=== PATIENT | female | born 1985 | race Two or more races ===

== ENCOUNTER 2021-02-24 08:58 | Emergency (ER) | payer SELFPAY ==
[2021-02-24] MEDS ORDERED: MIDAZOLAM HCL 5 MG/ML-1ML VIAL ONE (09:02)
[2021-02-24] MEDS ORDERED: fentaNYL Drip 2500mCg/250mlNS 250 ML IV ONE (09:10)
[2021-02-24] MEDS ORDERED: fentaNYL Drip 2500mCg/250mlNS 250 ML IV SCH (09:15)
[2021-02-24] MEDS ORDERED: MIDAZOLAM DRIP 50 mg/50mL 50 ML IV SCH (09:15)
[2021-02-24] MEDS ORDERED: ACETAMINOPHEN 650 mg PER 20.3 mL UD GT ONE (10:00)
[2021-02-24] MEDS ORDERED: SODIUM CHLORIDE 0.9% 2,000 ML IV ONE (10:45)
[2021-02-24 10:53] VITALS: BP 169/119
== END 2021-02-24 11:15 | disposition short-term general hospital (02) ==
LOC: ER 08:58 → EDBD 08:58 → ER 11:15
DX: O15.9 Eclampsia, unspecified as to time period (principal); G93.41 Metabolic encephalopathy; R41.82 Altered mental status, unspecified; R06.89 Other abnormalities of breathing; Z20.822 Contact with and (suspected) exposure to COVID-19; Z3A.22 22 weeks gestation of pregnancy
CPT/HCPCS: 31500; 36415; 36556; 36600; 71045; 82805; 87070; 87205; 87426; 99291; J2250; 94002